=== PATIENT | female | born 1990 | race Caucasian/White ===

== ENCOUNTER 2016-10-09 05:49 | Emergency (ER) | payer BC ==
[~2016-10-09] VITALS: Ht 162.6 cm; Wt 87.0 kg
[~2016-10-09 05:49] MED LIST: AUGM875T PO; IBUP800T23 PO
[2016-10-09 05:57] VITALS: BP 125/85; PULSE 74; RESP 14; TEMP 97.7; O2SAT 99
--- NOTE | 2016-10-09 06:14 | PD ---
HPI Chief Complaint: Abdominal Pain Time Seen by Provider: 06:04 Travel History International Travel<30 days: Yes Contact w/Intl Traveler<30days: Yes History of Present Illness HPI Is a 25-year-old woman who presents to the emergency department complaining of a back pain and abdominal pain. She states this around 11 PM last night. Feels like gas pain in her back. She's had similar pains before that usually resolve on their own. Pain radiates around to the epigastrium. States the pains a little worse in the left back, but mostly in the mid upper abdomen. She is no history of abdominal surgeries. No nausea or vomiting. Normal appetite. No change in bowel movements. She did start her menstrual cycle overnight. She denies any abnormal vaginal discharge or vaginal bleeding prior to that. She otherwise had been feeling generally well and healthy. History Past Medical History Medical History: Denies Significant Hx Social History Alcohol Use: Yes (OCC) Tobacco Use: No Allergies-Medications (Allergen,Severity, Reaction): Coded Allergies: Rosario (Verified Allergy, Mild, HIVES, 10/09/16) Reported Meds & Prescriptions Reported Meds & Active Scripts Active Ibuprofen 800 Mg Tab 800 Mg PO QID PRN 10 Days Augmentin (Amoxicillin-Clavulanate) 875-125 mg Tab 875 Mg PO BID not for use in CrCl <30 ml/min. Review of Systems Except as stated in HPI: all other systems reviewed are Neg Physical Exam Narrative GENERAL: Well-appearing 25-year-old woman, no acute distress. SKIN: Focused skin assessment warm/dry. HEAD: Atraumatic. Normocephalic. CARDIOVASCULAR: Regular rate and rhythm. No murmur appreciated. RESPIRATORY: No accessory muscle use. Clear to auscultation. Breath sounds equal bilaterally. GASTROINTESTINAL: Abdomen is obese and soft. There is minimal epigastric tenderness or right upper quadrant tenderness. No rebound or guarding. Negative Kirby's. No CVA tenderness to percussion. MUSCULOSKELETAL: No obvious deformities. No edema. NEUROLOGICAL: Awake and alert. No obvious cranial nerve deficits. Motor grossly within normal limits. Normal speech. PSYCHIATRIC: Appropriate mood and affect; insight and judgment normal. Data Data Last Documented VS Vital Signs Date Time Temp Pulse Resp B/P Pulse Ox O2 Delivery O2 Flow Rate FiO2 10/09/16 05:57 97.7 74 14 125/85 99 Orders Complete Blood Count With Diff (10/09/16 06:09) Comprehensive Metabolic Panel (10/09/16 06:09) Lipase (10/09/16 06:09) Urinalysis - C+S If Indicated (10/09/16 06:09) Iv Access Insert/Monitor (10/09/16 06:09) Ecg Monitoring (10/09/16 06:09) Oximetry (10/09/16 06:09) Sodium Chloride 0.9% Flush (Ns Flush) (10/09/16 06:15) Ed Urine Pregnancytest Poc (10/09/16 06:09) Ed Poc Ultrasound (10/09/16 06:09) Labs Laboratory Tests Test 10/09/16 10/09/16 06:15 06:20 Urine Collection Type CLEAN CATCH Urine Color YELLOW Urine Turbidity CLEAR Urine pH 5.5 Urine Specific Cameron 1.025 Urine Protein NEG mg/dL Urine Glucose (UA) NEG mg/dL Urine Ketones NEG mg/dL Urine Occult Blood MOD Urine Nitrite NEG Urine Bilirubin NEG Urine Leukocyte Esterase NEG Urine RBC 0-3 /hpf Urine WBC 0-2 /hpf Urine Squamous Epithelial 0-5 /hpf Cells Microscopic Urinalysis Comment CULT NOT INDICATED White Blood Count 10.6 TH/MM3 Red Blood Count 4.84 MIL/MM3 Hemoglobin 13.1 GM/DL Hematocrit 38.8 % Mean Corpuscular Volume 80.2 FL Mean Corpuscular Hemoglobin 27.0 PG Mean Corpuscular Hemoglobin 33.7 % Concent Red Cell Distribution Width 13.2 % Platelet Count 390 TH/MM3 Mean Platelet Volume 7.9 FL Neutrophils (%) (Auto) 69.7 % Lymphocytes (%) (Auto) 23.7 % Monocytes (%) (Auto) 4.0 % Eosinophils (%) (Auto) 1.9 % Basophils (%) (Auto) 0.7 % Neutrophils # (Auto) 7.4 TH/MM3 Lymphocytes # (Auto) 2.5 TH/MM3 Monocytes # (Auto) 0.4 TH/MM3 Eosinophils # (Auto) 0.2 TH/MM3 Basophils # (Auto) 0.1 TH/MM3 CBC Comment DIFF FINAL Differential Comment Sodium Level 139 MEQ/L Potassium Level 3.6 MEQ/L Chloride Level 105 MEQ/L Carbon Dioxide Level 26.6 MEQ/L Anion Gap 7 MEQ/L Blood Urea Nitrogen 13 MG/DL Creatinine 0.70 MG/DL Estimat Glomerular Filtration 101 ML/MIN Rate Random Glucose 103 MG/DL Calcium Level 9.3 MG/DL Total Bilirubin 0.2 MG/DL Aspartate Amino Transf 12 U/L (AST/SGOT) Alanine Aminotransferase 19 U/L (ALT/SGPT) Alkaline Phosphatase 83 U/L Total Protein 8.6 GM/DL Albumin 4.2 GM/DL Lipase 133 U/L MDM Medical Decision Making Medical Screen Exam Complete: Yes Emergency Medical Condition: Yes Interpretation(s) LABS: CBC unremarkable CMP unremarkable Lipase normal UA unremarkable Differential Diagnosis Biliary colic, symptomatic cholelithiasis, cholecystitis, pancreatitis, gastritis, renal lithiasis, UTI, other Narrative Course Medical decision-making 25-year-old woman presents emergent from with back pain that radiates into the epigastrium. She looks well. She is minimal epigastric tenderness. She's had similar symptoms in the past. I think this is probably biliary colic. I don't think she has cholecystitis. We'll do a bedside ultrasound to take a look at her gallbladder, and her kidneys. I don't think she has a kidney stone. It doesn't really sound like GERD. We'll check basic labs., Urine, and likely discharge for outpatient follow-up. FINAL: Ultrasound shows gallstones. No other evidence of cholecystitis. Labs are unremarkable. Benign exam. Feeling improved. This is likely biliary colic or symptomatic cholelithiasis. Recommend outpatient follow-up. Procedures Procedure Narrative Point of care ultrasound: Focus transabdominal ultrasounds perform a me at the bedside for the purpose of evaluating for evidence of cholecystitis. Large gallbladder was identified. There is no pericholecystic fluid or gallbladder wall thickening. There are some gallstones identified as well. Negative sonographic Kirby sign. Diagnosis Primary Impression: Biliary colic Additional Instructions: Use acetaminophen as needed for pain. Follow-up with your primary doctor if you have persistent symptoms. If you have any worsening pain, fevers or chills, or any other new or worsening symptoms, return to the emergency department. Med/Other Pt SpecificInfo: No Change to Meds Disposition: 01 DISCHARGE HOME Condition: Stable Blaine Fonseca MD Oct 09, 2016 06:14
[2016-10-09] MEDS ORDERED: SODIUM CHLORIDE 0.9% FLUSH 10 ML FLUSH IV FLUSH PRN (06:15)
[2016-10-09 06:23] LABS: GLUCOSE,URINE NEG (NEG); KETONE, URINE NEG (NEG); NITRITE,URINE NEG (NEG); PH, URINE 5.5 (5.0-8.5)
[2016-10-09 06:25] LABS: AUTOMATED NEUTROPHIL # 7.4 TH/MM3 (1.8-7.7); BASOPHIL # 0.1 TH/MM3 (0-0.2); BASOPHIL % 0.7 % (0.0-2.0); EOSINOPHIL # 0.2 TH/MM3 (0-0.4); EOSINOPHIL % 1.9 % (0.0-4.0); HEMATOCRIT 38.8 % (35.0-46.0); HEMO FLAGS DIFF FINAL; LYMPH % 23.7 % (9.0-44.0); LYMPHOCYTE # 2.5 TH/MM3 (1.0-4.8); MEAN CELL VOLUME 80.2 FL (80.0-100.0); MEAN CORPUSCULAR HGB CONC 33.7 % (32.0-36.0); NEUT % 69.7 % (16.0-70.0); PLATELET COUNT 390 TH/MM3 (150-450); RED BLOOD COUNT 4.84 MIL/MM3 (4.00-5.30); RED CELL DISTRIBUTION WIDTH 13.2 % (11.6-17.2); WHITE BLOOD COUNT 10.6 TH/MM3 (4.0-11.0)
[2016-10-09 06:29] LABS: BLOOD, URINE MOD (NEG); METHOD OF COLLECTION CLEAN CATCH; URINE COLOR YELLOW (YELLW/STRAW)
[2016-10-09 06:30] LABS: COMMENT (UR) CULT NOT INDICATED; CULTURE IF INDICATED CULT NOT INDICATED; RBC, URINE 0-3 /hpf (0-3); SQUAMOUS EPITHELIAL CELL URINE 0-5 /hpf (0-5); WBC, URINE 0-2 /hpf (0-5)
[2016-10-09 06:39] LABS: CHLORIDE 105 MEQ/L (98-107); POTASSIUM 3.6 MEQ/L (3.5-5.1); SODIUM (NA) 139 MEQ/L (136-145)
[2016-10-09 06:43] LABS: ANION GAP 7 MEQ/L (5-15); BICARBONATE 26.6 MEQ/L (21.0-32.0); BLOOD UREA NITROGEN 13 MG/DL (7-18)
[2016-10-09 06:45] LABS: ALT (GPT) 19 U/L (10-53)
[2016-10-09 06:46] LABS: AST (GOT) 12 U/L (15-37); GLOMERULAR FILTRATION RATE 101 ML/MIN (>89)
[2016-10-09 06:47] LABS: TOTAL BILIRUBIN ADULT 0.2 MG/DL (0.2-1.0)
[2016-10-09 06:49] LABS: ALKALINE PHOSPHATASE 83 U/L (45-117)
== END 2016-10-09 07:14 | disposition home or self-care (01) ==
LOC: PHED 05:49
DX: K80.50 Calculus of bile duct without cholangitis or cholecystitis without obstruction (principal)
CPT/HCPCS: 80053; 81001; 83690; 84703; 85025; 99283